=== PATIENT | female | born 2000 | race Two or more races ===

== ENCOUNTER 2018-11-12 11:38 | Outpatient (CLI) | payer OTHER | END 2018-11-12 12:11 | disposition home or self-care (01) | LOC: RAD 11:38 | DX: M41.125 Adolescent idiopathic scoliosis, thoracolumbar region (principal) ==

== ENCOUNTER 2018-11-16 08:19 | Outpatient (CLI) | payer OTHER | END 2018-11-16 08:48 | disposition home or self-care (01) | LOC: LAB 08:19 | DX: E80.6 Other disorders of bilirubin metabolism (principal); R11.10 Vomiting, unspecified ==

== ENCOUNTER → 2018-11-16 | Outpatient (CLI) | payer OTHER | END | disposition home or self-care (01) | LOC: SONOGRAMA 07:47 → MAMO-SONO 08:15 | DX: R94.5 Abnormal results of liver function studies (principal); E80.6 Other disorders of bilirubin metabolism ==